=== PATIENT | male | born 1940 | race Caucasian/White ===

== ENCOUNTER 2018-02-23 16:59 | Observation (INO) | payer MEDICARE ==
[2018-02-23] MEDS ORDERED: SODIUM CHLORIDE 0.9% 500 ML IV ONE (17:24)
[2018-02-23] MEDS ORDERED: ONDANSETRON 4 MG/2 ML VIAL IVP STA ×2 (17:24→19:04)
--- NOTE | 2018-02-23 17:30 | ED ---
General Adult HPI - General Chief complaint: Chest Pain Stated complaint: chest pain Time Seen by Provider: 02/23/18 17:07 Source: patient, RN notes reviewed, old records reviewed Mode of arrival: wheelchair Limitations: no limitations - History of Present Illness Initial comments: 77-year-old male history of COPD, CAD status post coronary artery bypass graft presents for evaluation of chest pain, lightheadedness, and dyspnea. Patient's symptoms began approximately one hour prior to arrival. His had some associated nausea, no vomiting. Denies baseline dyspnea, he has not had an issue with his heart in the past 20 years. He was a previous smoker but is not currently smoking. Patient lives out of town, he is here visiting friends. Denies lower extremity pain or swelling. Denies preceding cough or fever. Pain is substernal. - Related Data Home Medications Medication Instructions Recorded Confirmed Albuterol Inhaler [Ventolin Hfa 2 puff INHALATION RT-Q4H PRN 02/23/18 02/23/18 Inhaler] Aspirin EC [Ecotrin Low Dose] 81 mg PO HS 02/23/18 02/23/18 Atorvastatin [Lipitor] 80 mg PO HS 02/23/18 02/23/18 Calcium Carbonate [Calcium] 1,200 mg PO AC-LUNCH 02/23/18 02/23/18 Carvedilol [Coreg] 3.125 mg PO BID 02/23/18 02/23/18 Cholecalciferol (Vitamin D3) 2,000 unit PO AC-LUNCH 02/23/18 02/23/18 [Vitamin D3] Ciclopirox [Penlac] 1 applic TOPICAL 02/23/18 02/23/18 Diltiazem HCl [Diltiazem ER] 180 mg PO DAILY 02/23/18 02/23/18 Docusate [Colace] 100 mg PO BID PRN 02/23/18 02/23/18 Econazole Nitrate 1 applic TOPICAL HS 02/23/18 02/23/18 Fish Oil/Dha/Epa [Fish Oil 1,200 1 cap PO AC-LUNCH 02/23/18 02/23/18 mg Fish Oil] Fluticasone/Salmeterol [Advair 1 puff INHALATION RT-BID 02/23/18 02/23/18 100-50 Diskus] Furosemide [Lasix] 20 mg PO DAILY 02/23/18 02/23/18 Ipratropium Nebulized [Atrovent 0.5 mg INHALATION RT-QID PRN 02/23/18 02/23/18 Nebulized] Lactobacillus Acidophilus 1 tab PO AC-LUNCH 02/23/18 02/23/18 [Acidophilus] Lisinopril [Zestril] 5 mg PO HS 02/23/18 02/23/18 Ondansetron [Zofran ODT] 4 mg PO Q8HR PRN 02/23/18 02/23/18 Pantoprazole Sodium [Protonix] 40 mg PO DAILY 02/23/18 02/23/18 Potassium Chloride ER [K-Dur 20] 20 meq PO DAILY 02/23/18 02/23/18 Venlafaxine HCl [Effexor] 75 mg PO HS 02/23/18 02/23/18 Zipsor(Unknown Dose) 1 tab PO Q12H PRN 02/23/18 02/23/18 Allergies Allergy/AdvReac Type Severity Reaction Status Date / Time Iodinated Contrast- Oral and Allergy Anaphylaxis Verified 02/23/18 17:36 IV Dye Review of Systems ROS Statement: Those systems with pertinent positive or pertinent negative responses have been documented in the HPI. ROS Other: All systems not noted in ROS Statement are negative. Past Medical History Past Medical History: Asthma, COPD, Hyperlipidemia, Hypertension History of Any Multi-Drug Resistant Organisms: None Reported Past Surgical History: Cholecystectomy, Coronary Bypass/CABG, Heart Catheterization With Stent Past Psychological History: No Psychological Hx Reported Smoking Status: Former smoker Past Alcohol Use History: Occasional Past Drug Use History: None Reported General Exam Limitations: no limitations General appearance: alert, in no apparent distress Head exam: Present: atraumatic, normocephalic Eye exam: Present: normal appearance, PERRL, EOMI ENT exam: Present: normal exam Neck exam: Present: normal inspection. Absent: tenderness, meningismus Respiratory exam: Present: normal lung sounds bilaterally. Absent: respiratory distress, wheezes, rales Cardiovascular Exam: Present: regular rate, normal rhythm GI/Abdominal exam: Present: soft, tenderness (Mild left lower quadrant tenderness palpation). Absent: distended Extremities exam: Present: normal inspection, normal capillary refill. Absent: pedal edema Back exam: Present: normal inspection. Absent: full ROM, tenderness Neurological exam: Present: alert, oriented X3, CN II-XII intact. Absent: motor sensory deficit Psychiatric exam: Present: normal affect, normal mood Skin exam: Present: warm, dry, intact. Absent: cyanosis, diaphoretic Course Vital Signs 02/23/18 02/23/18 02/23/18 17:04 18:21 19:08 Temperature 97.4 F L 97.6 F Pulse Rate 109 H 91 101 H Respiratory 18 16 19 Rate Blood Pressure 116/74 148/68 144/78 O2 Sat by Pulse 99 99 99 Oximetry EKG Findings - EKG Comments: EKG Findings:: EKG: Obtained at 1715, sinus tachycardia, first-degree AV block left axis deviation, right bundle branch block, rate of 101, WA interval 216, QRS duration 140, QTC 492. Repeat EKG obtained at 1818 with worsening pain, sinus rhythm with first-degree AV block, left axis deviation, right bundle branch block, rate of 94, WA interval 216, QRS duration 140, QTC 510 Medical Decision Making - Medical Decision Making 77-year-old male presenting for evaluation of chest pain. Patient does have history of CAD status post CABG. EKG is abnormal although there is no baseline for comparison. Additional workup in the ER: Chest x-ray negative for any acute cardiopulmonary disease, normal white blood cell count, hemoglobin is 11.3 , troponin is negative. CMP unremarkable. Lipase is 308 which is mildly elevated, patient is reevaluated he does have some mild epigastric tenderness to palpation. He is status post cholecystectomy. Given the patient's risk factors he will be kept in observation for serial cardiac enzymes. CT of the abdomen will be obtained given his epigastric abdominal pain and nausea on top of his chest pain. Case discussed with Dr. Beckford, he will accept admission, he will also follow up on computed tomography scan of the abdomen and pelvis. - Lab Data Result diagrams: 02/23/18 17:15 02/23/18 17:15 Lab Results 02/23/18 02/23/18 02/23/18 Range/Units 17:15 17:15 17:15 WBC 6.9 (3.8-10.6) k/uL RBC 3.26 L (4.30-5.90) m/uL Hgb 11.3 L (13.0-17.5) gm/dL Hct 33.8 L (39.0-53.0) % MCV 103.7 H (80.0-100.0) fL MCH 34.5 (25.0-35.0) pg MCHC 33.3 (31.0-37.0) g/dL RDW 14.8 (11.5-15.5) % Plt Count 226 (150-450) k/uL Neutrophils % 62 % Lymphocytes % 31 % Monocytes % 5 % Eosinophils % 0 % Basophils % 0 % Neutrophils # 4.3 (1.3-7.7) k/uL Lymphocytes # 2.1 (1.0-4.8) k/uL Monocytes # 0.3 (0-1.0) k/uL Eosinophils # 0.0 (0-0.7) k/uL Basophils # 0.0 (0-0.2) k/uL Macrocytosis Slight PT (9.0-12.0) sec INR (<1.2) APTT (22.0-30.0) sec Sodium 138 (137-145) mmol/L Potassium 4.2 (3.5-5.1) mmol/L Chloride 99 (98-107) mmol/L Carbon Dioxide 25 (22-30) mmol/L Anion Gap 14 mmol/L BUN 31 H (9-20) mg/dL Creatinine 1.08 (0.66-1.25) mg/dL Est GFR (CKD-EPI)AfAm 77 (>60 ml/min/1.73 sqM) Est GFR (CKD-EPI)NonAf 67 (>60 ml/min/1.73 sqM) Glucose 97 (74-99) mg/dL Calcium 8.4 (8.4-10.2) mg/dL Magnesium 1.9 (1.6-2.3) mg/dL Total Bilirubin 0.8 (0.2-1.3) mg/dL AST 33 (17-59) U/L ALT 35 (21-72) U/L Alkaline Phosphatase 78 (38-126) U/L Total Creatine Kinase 24 L (55-170) U/L CK-MB (CK-2) 0.3 (0.0-2.4) ng/mL CK-MB (CK-2) Rel Index 1.3 Troponin I <0.012 (0.000-0.034) ng/mL NT-Pro-B Natriuret Pep pg/mL Total Protein 6.8 (6.3-8.2) g/dL Albumin 3.8 (3.5-5.0) g/dL Lipase 308 H (23-300) U/L Urine Color Urine Appearance (Clear) Urine pH (5.0-8.0) Ur Specific [place] (1.001-1.035) Urine Protein (Negative) Urine Glucose (UA) (Negative) Urine Ketones (Negative) Urine Blood (Negative) Urine Nitrite (Negative) Urine Bilirubin (Negative) Urine Urobilinogen (<2.0) mg/dL Ur Leukocyte Esterase (Negative) 02/23/18 02/23/18 02/23/18 Range/Units 17:15 17:15 Unknown WBC (3.8-10.6) k/uL RBC (4.30-5.90) m/uL Hgb (13.0-17.5) gm/dL Hct (39.0-53.0) % MCV (80.0-100.0) fL MCH (25.0-35.0) pg MCHC (31.0-37.0) g/dL RDW (11.5-15.5) % Plt Count (150-450) k/uL Neutrophils % % Lymphocytes % % Monocytes % % Eosinophils % % Basophils % % Neutrophils # (1.3-7.7) k/uL Lymphocytes # (1.0-4.8) k/uL Monocytes # (0-1.0) k/uL Eosinophils # (0-0.7) k/uL Basophils # (0-0.2) k/uL Macrocytosis PT 10.6 (9.0-12.0) sec INR 1.1 (<1.2) APTT 21.6 L (22.0-30.0) sec Sodium (137-145) mmol/L Potassium (3.5-5.1) mmol/L Chloride (98-107) mmol/L Carbon Dioxide (22-30) mmol/L Anion Gap mmol/L BUN (9-20) mg/dL Creatinine (0.66-1.25) mg/dL Est GFR (CKD-EPI)AfAm (>60 ml/min/1.73 sqM) Est GFR (CKD-EPI)NonAf (>60 ml/min/1.73 sqM) Glucose (74-99) mg/dL Calcium (8.4-10.2) mg/dL Magnesium (1.6-2.3) mg/dL Total Bilirubin (0.2-1.3) mg/dL AST (17-59) U/L ALT (21-72) U/L Alkaline Phosphatase (38-126) U/L Total Creatine Kinase (55-170) U/L CK-MB (CK-2) (0.0-2.4) ng/mL CK-MB (CK-2) Rel Index Troponin I (0.000-0.034) ng/mL NT-Pro-B Natriuret Pep 182 pg/mL Total Protein (6.3-8.2) g/dL Albumin (3.5-5.0) g/dL Lipase (23-300) U/L Urine Color Light Yellow Urine Appearance Clear (Clear) Urine pH 7.0 (5.0-8.0) Ur Specific [place] 1.007 (1.001-1.035) Urine Protein Negative (Negative) Urine Glucose (UA) Negative (Negative) Urine Ketones Negative (Negative) Urine Blood Negative (Negative) Urine Nitrite Negative (Negative) Urine Bilirubin Negative (Negative) Urine Urobilinogen 2.0 (<2.0) mg/dL Ur Leukocyte Esterase Negative (Negative) Disposition Clinical Impression: Chest pain Disposition: ADMITTED IP TO THIS [facility] Condition: Stable Is patient prescribed a controlled substance at d/c from ED?: No Referrals: Nonstaff,Physician [Primary Care Provider] - 1-2 days Decision to Admit Reason: Admit from EC Decision Date: 02/23/18 Decision Time: 19:24
[2018-02-23 17:37] LABS: Basophils % (A) 0 %; Eosinophils % (A) 0 %; HCT 33.8 % (39.0-53.0); HGB 11.3 gm/dL (13.0-17.5); Lymphocytes # (A) 2.1 k/uL (1.0-4.8); Lymphocytes % (A) 31 %; MCH 34.5 pg (25.0-35.0); MCHC 33.3 g/dL (31.0-37.0); MCV 103.7 fL (80.0-100.0); Macrocytosis Slight; Mean Platelet Volume 7.9; Monocytes # (A) 0.3 k/uL (0-1.0); Monocytes % (A) 5 %; Neutrophils # (A) 4.3 k/uL (1.3-7.7); Neutrophils % (A) 62 %; Platelet Count 226 k/uL (150-450); RBC 3.26 m/uL (4.30-5.90); RDW 14.8 % (11.5-15.5); WBC 6.9 k/uL (3.8-10.6)
[2018-02-23 17:38] LABS: Appearance,Urine Clear (Clear); Bilirubin,Urine Negative (Negative); Blood,Urine Negative (Negative); Color,Urine Light Yellow; Glucose,Urine (UA) Negative (Negative); Ketones,Urine Negative (Negative); Leukocyte Esterase,Urine Negative (Negative); Nitrite,Urine Negative (Negative); Protein,Urine Negative (Negative); Specific Gravity,Urine 1.007 (1.001-1.035)
[2018-02-23 17:48] LABS: Albumin 3.8 g/dL (3.5-5.0); Calcium 8.4 mg/dL (8.4-10.2); Magnesium 1.9 mg/dL (1.6-2.3); Potassium 4.2 mmol/L (3.5-5.1); Total Bilirubin 0.8 mg/dL (0.2-1.3); Total Protein 6.8 g/dL (6.3-8.2)
[2018-02-23 17:58] LABS: INR 1.1 (<1.2); Prothrombin Time 10.6 sec (9.0-12.0)
[2018-02-23 17:59] LABS: Creatine Kinase 24 U/L (55-170)
[2018-02-23 18:04] LABS: Partial Thromboplastin Time 21.6 sec (22.0-30.0)
[2018-02-23 18:12] LABS: Creatine Kinase MB 0.3 ng/mL (0.0-2.4); Troponin I <0.012 ng/mL (0.000-0.034)
[2018-02-23] MEDS ORDERED: MORPHINE SULFATE 4 MG/ML SYRINGE IVP STA (18:33)
--- NOTE | 2018-02-23 18:56 | XR ---
EXAMINATION TYPE: XR chest 2V DATE OF EXAM: 02/23/2018 COMPARISON: None HISTORY: 77 year-old male shortness of breath and chest pain TECHNIQUE: AP and lateral views FINDINGS: The heart is normal size. Median sternotomy wires. Atherosclerotic arch calcifications. Mild intersti tial prominence has a chronic appearance. No consolidation or pleural effusion. IMPRESSION: No acute cardiopulmonary process.
[2018-02-23] MEDS ORDERED: ACETAMINOPHEN TAB 325 MG TAB PO PRN (19:14)
[2018-02-23] MEDS ORDERED: ONDANSETRON 4 MG/2 ML VIAL IVP PRN (19:14)
[2018-02-23] MEDS ORDERED: NALOXONE 0.4 MG/ML 1 ML VIAL IV PRN (19:14)
[2018-02-23] MEDS ORDERED: methylPREDNISolone SOD SUCCI 125 MG/2 ML VIAL IV STA (19:17)
[2018-02-23] MEDS ORDERED: FAMOTIDINE 20 MG/2 ML VIAL IV STA ×2 (19:17)
[2018-02-23] MEDS ORDERED: diphenhydrAMINE 50 MG/ML 1 ML VIAL IVP STA (19:17)
[2018-02-23] MEDS ORDERED: IPRATROPIUM 0.5 MG/2.5 ML NEBU INHALATION PRN (19:45)
[2018-02-23] MEDS ORDERED: ALBUTEROL NEBULIZED 2.5 MG/3 ML INHALATION PRN (19:45)
--- NOTE | 2018-02-23 19:45 | P.HPIM ---
History of Present Illness H&P Date: 02/23/18 Chief Complaint: chest pain 77-year-old male with significant past medical history for coronary artery disease status post CABG in 1997 and stents in 2004. Patient lives in [facility] and he is visiting here for his daughter' s wedding Patient presented due to sudden onset chest pain, he reports that he was watching TV when he felt that there is chest pressure building up up and so became severe 7 out of 10 in severity, pressure-like central nonradiating associated with lightheadedness dizziness dyspnea nausea but no vomiting he tried to rest for it to go away but it persisted for which she got concerned and decided to come to the hospital. Last time he had the chest pain was 3 years ago which resolved on its own with resting he did not seek medical advice at bedtime. Patient otherwise reports no chest pain but sometimes he gets some shortness of breath with moderate to severe activity. For which she rests and will resolve last time he was hospitalized was around 3 months ago for COPD exacerbation. Patient otherwise denies any headache changes in his vision or hearing he denies any focal neurologic deficits he denies any changes in his speech he denies any changes in his bowel habits or urinary habits he denies any GI bleeding. Patient does report some mild discomfort right lower quadrant of the belly after I examined him. Patient also reports decreased appetite and weight loss of 50 pounds over 3-4 months of summer, his PCP in [place] is aware and has been running up some tests. He prescribed the patient some Zofran to help with nausea and increase his appetite. EKG showed right bundle branch block and cardiac enzymes were negative CAT scan of the abdomen showed calcification of the infrarenal abdominal aorta with stenosis of the right renal artery. comparison to prior imaging was advised currently patient denies chest pain or dizziness. Review of Systems Pertinent positives as noted in HPI. All other systems were reviewed and are negative Past Medical History Past Medical History: Asthma, Coronary Artery Disease (CAD), COPD, Hyperlipidemia, Hypertension History of Any Multi-Drug Resistant Organisms: None Reported Past Surgical History: Cholecystectomy, Coronary Bypass/CABG, Heart Catheterization With Stent Past Psychological History: No Psychological Hx Reported Smoking Status: Former smoker Past Alcohol Use History: Occasional Past Drug Use History: None Reported - Past Family History family Additional Family Medical History / Comment(s): mother with CAD, of heart attack Medications and Allergies Home Medications Medication Instructions Recorded Confirmed Type Albuterol Inhaler [Ventolin Hfa 2 puff INHALATION RT-Q4H PRN 02/23/18 02/23/18 History Inhaler] Aspirin EC [Ecotrin Low Dose] 81 mg PO HS 02/23/18 02/23/18 History Atorvastatin [Lipitor] 80 mg PO HS 02/23/18 02/23/18 History Calcium Carbonate [Calcium] 1,200 mg PO AC-LUNCH 02/23/18 02/23/18 History Carvedilol [Coreg] 3.125 mg PO BID 02/23/18 02/23/18 History Cholecalciferol (Vitamin D3) 2,000 unit PO AC-LUNCH 02/23/18 02/23/18 History [Vitamin D3] Ciclopirox [Penlac] 1 applic TOPICAL HS 02/23/18 02/23/18 History Diltiazem HCl [Diltiazem ER] 180 mg PO DAILY 02/23/18 02/23/18 History Docusate [Colace] 100 mg PO BID PRN 02/23/18 02/23/18 History Econazole Nitrate 1 applic TOPICAL 02/23/18 02/23/18 History Fish Oil/Dha/Epa [Fish Oil 1,200 1 cap PO AC-LUNCH 02/23/18 02/23/18 History mg Fish Oil] Fluticasone/Salmeterol [Advair 1 puff INHALATION RT-BID 02/23/18 02/23/18 History 100-50 Diskus] Furosemide [Lasix] 20 mg PO DAILY 02/23/18 02/23/18 History Ipratropium Nebulized [Atrovent 0.5 mg INHALATION RT-QID PRN 02/23/18 02/23/18 History Nebulized] Lactobacillus Acidophilus 1 tab PO AC-LUNCH 02/23/18 02/23/18 History [Acidophilus] Lisinopril [Zestril] 5 mg PO HS 02/23/18 02/23/18 History Ondansetron [Zofran ODT] 4 mg PO Q8HR PRN 02/23/18 02/23/18 History Pantoprazole Sodium [Protonix] 40 mg PO DAILY 02/23/18 02/23/18 History Potassium Chloride ER [K-Dur 20] 20 meq PO DAILY 02/23/18 02/23/18 History Venlafaxine HCl [Effexor] 75 mg PO HS 02/23/18 02/23/18 History Zipsor(Unknown Dose) 1 tab PO Q12H PRN 02/23/18 02/23/18 History Allergies Allergy/AdvReac Type Severity Reaction Status Date / Time Iodinated Contrast- Oral and Allergy Anaphylaxis Verified 02/23/18 17:36 IV Dye Physical Exam Vitals: Vital Signs Temp Pulse Resp BP Pulse Ox 02/23/18 19:08 97.6 F 101 H 19 144/78 99 02/23/18 18:21 91 16 148/68 99 02/23/18 17:04 97.4 F L 109 H 18 116/74 99 Intake and Output 02/23/18 02/23/18 02/23/18 06:59 14:59 22:59 Other: Weight 72.575 kg Constitutional: No acute distress, conversant, pleasant Eyes: Anicteric sclerae, moist conjunctiva, no lid-lag Pupils equal round reactive to light ENMT: NC/AT Oropharynx clear, no erythema, or exudates Neck: Supple, FROM, no masses, or JVD No carotid bruits No thyromegaly Lungs: Clear to auscultation Clear to percussion Normal respiratory effort, no accessory muscle use Cardiovascular: Heart regular in rate and rhythm, No murmurs, gallops, or rubs No peripheral edema Abdominal: Soft, slight discomfort to palpation of the right lower quadrant no guarding, rebound or rigidity Abdomen moving with respiration Normoactive bowel sounds No hepatomegaly, No splenomegaly No palpable mass No abdominal wall hernia noted Skin: echymotic spots over bilateral forearms Normal temperature, tone, texture, turgor No induration No subcutaneous nodules No rash, lesions No ulcers Extremities: No digital cyanosis No clubbing Pedal pulses weak and symmetrical, capillary refil immediate over the toes Radial pulses intact and symmetrical No calf tenderness Psychiatric: Alert and oriented to person, place and time Appropriate affect fair judgment Neuro Muscles Strength 5/5 in all 4 extremities Sensation to light touch grossly present throughout Cranial nerves II-XII grossly intact No focal sensory deficits no Nystagmus Lymphatics: no palpable cervical or supraclavicular , or inguinal lymph nodes Results CBC & Chem 7: 02/23/18 17:15 02/23/18 17:15 Labs: Abnormal Lab Results - Last 24 Hours (Table) 02/23/18 02/23/18 02/23/18 Range/Units 17:15 17:15 17:15 RBC 3.26 L (4.30-5.90) m/uL Hgb 11.3 L (13.0-17.5) gm/dL Hct 33.8 L (39.0-53.0) % MCV 103.7 H (80.0-100.0) fL APTT (22.0-30.0) sec BUN 31 H (9-20) mg/dL Total Creatine Kinase 24 L (55-170) U/L Lipase 308 H (23-300) U/L 02/23/18 Range/Units 17:15 RBC (4.30-5.90) m/uL Hgb (13.0-17.5) gm/dL Hct (39.0-53.0) % MCV (80.0-100.0) fL APTT 21.6 L (22.0-30.0) sec BUN (9-20) mg/dL Total Creatine Kinase (55-170) U/L Lipase (23-300) U/L Assessment and Plan Assessment: 77-year-old male with significant history for coronary artery disease status post CABG 1997 and stent in 2004. Patient is admitted as observation with anticipated length of stay of less than 48 hours to rule out acute coronary syndrome due to patient presenting with chest pain suspected to have unstable angina. Initial cardiac enzymes were negative will continue to trend enzymes, cardiac monitoring, cardiology consult. Echocardiogram of the heart in the morning to a questionable history of heart failure and patient feeling generalized fatigue. 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, statin Nitro SL prn cardiology consult IVF hydration hold lasix Hypertension , currently controlled continue lisinopril , coreg COPD , stable continue inhalers unintentional weight loss poor apetite workup initiated in [place] GERD PPI abd aortic calcification , per abd CT compare to prior imaging , [place] Macrocytic anemia check B12, folic acid levels Surrogate decision-maker: patient daughter Tisha CODE STATUS:full code DVT prophylaxis:heparin sc tid Discussed with: Patient, ER, Rn Anticipated discharge: <[address]: home A total of 50 minutes was spent on the care of this complex patient more than 50 % of the time was spent in counseling and care coordination.
[2018-02-23] MEDS: SODIUM CHLORIDE 0.9% 1,000 ML IV SCH (20:07)
--- NOTE | 2018-02-23 21:10 | CT ---
EXAMINATION TYPE: CT abdomen pelvis w con DATE OF EXAM: 02/23/2018 COMPARISON: NONE HISTORY: 77-year-old male with abdominal pain TECHNIQUE: Contiguous axial scanning of the abdomen and pelvis following administration of 100 ml Iso debbie 300 IV contrast. Delayed images through the kidneys and coronal/sagittal reconstructions perform ed. CT DLP: 764.90 mGycm Automated exposure control for dose reduction was used. FINDINGS: Median sternotomy wires are present. Heart normal size without pericardial effusion. Mild dependent a telectasis without pleural effusion. No focal liver lesion. Patient status post cholecystectomy. Normal distal tapering of the bile duct. Diverticulum of the second portion of the duodenum projecting into the pancreatic head region. Portal venous system is patent. Adrenal glands and spleen appear within normal limits. Bilateral renal cysts measuring up to 3.3 cm on the left and 2.6 cm on the right. Nonspecific calcifications in the pancreatic tail measuring 9 mm. No discrete mass identified. No dilated small bowel, free fluid, or free air. Right renal artery stent. There may be severe narrowing at the origin of the left renal artery. There is an infrarenal abdominal iliac stent graft. Scattered densities within the la posta sacs, parti cularly along the left lateral margin of the distal abdominal aorta, refer to axial image 48, posteri or aspect distal abdominal aorta, and axial image 54 and 55, and within the posterior aspect of the a neurysmal right common iliac artery la posta sac on axial image 68. Proximal stented la posta sac measures 3.6 cm, distal stented la posta sac measures 4.0 cm, right common iliac artery la posta sac measures 3.9 cm, and left common iliac artery la posta sac measures 2.4 cm. No dilated small bowel, free fluid, or free air. No mesenteric or retroperitoneal lymphadenopathy. Minimal scattered stool. There is left hemicolonic diverticulosis extending from the mid descending c olon to the proximal sigmoid. No pericolonic inflammatory change seen. Bladder is urine distended. Prostate gland is enlarged measuring 6.3 cm wide. Pelvic phleboliths. No abnormal fluid collection in the pelvis or pelvic lymphadenopathy. Bones: Artifact from the patient's left hip total arthroplasty limiting assessment. Degenerated dextroconvex scoliosis of the lumbar spine. Patchy sclerosis is seen within the sacrum wh ich are reticular thickening, possible Paget's disease. Degenerative changes right hip. Grade 1 retro listheses at L3-L4 and L4-L5. IMPRESSION: 1. INFRARENAL AORTOBIILIAC ENDOVASCULAR STENT GRAFT. THIS EXAM IS NOT TAILORED FOR ASSESSMENT OF ENDO LEAK. THE AORTIC [place] MEASURES UP TO 4.0 CM, [place] OF THE RIGHT COMMON ILIAC ARTERY MEASUR ES UP TO 3.9 CM, AND THE LEFT COMMON ILIAC ARTERY [place] MEASURES UP TO 2.4 CM. THIS CAN BE IVONNE RED TO ANY AVAILABLE OUTSIDE PRIORS TO ENSURE STABILITY. 2. AREAS OF HYPERDENSITY WITHIN THE [place] ARE SUSPECTED TO REPRESENT CALCIFICATIONS RATHER THAN AN ENDOLEAK. AGAIN, OVERALL [place] CALIBER CAN BE COMPARED TO PATIENT'S OUTSIDE PRIORS. 3. POSSIBLE SEVERE STENOSIS AT THE ORIGIN OF THE LEFT RENAL ARTERY. 4. PROSTATOMEGALY (6.3 CM). 5. DEGENERATIVE DEXTROCONVEX SCOLIOSIS.
[2018-02-23] MEDS: SYMBICORT 80-4.5 MCG INHALER INHALATION SCH (21:15)
[2018-02-23] MEDS ORDERED: NITROGLYCERIN SL TABS 0.4 MG TAB SUBLINGUAL PRN (21:32)
[2018-02-23 22:07] VITALS: BMI 21.7
[2018-02-23] MEDS: MORPHINE SULFATE 4 MG/ML SYRINGE IV PRN (22:10)
[2018-02-23] MEDS: LISINOPRIL 5 MG TAB PO SCH (22:10)
[2018-02-23] MEDS: ASPIRIN 81 MG PO SCH (22:10)
[2018-02-23] MEDS: ATORVASTATIN 80 MG TAB PO SCH (22:10)
[2018-02-23] MEDS: VENLAFAXINE HCL 75 MG TAB PO SCH (22:10)
[2018-02-23] MEDS: CARVEDILOL 3.125 MG TAB PO SCH (22:10)
[2018-02-23] MEDS: CLOTRIMAZOLE 1% CREAM 15 GM TUBE TOPICAL SCH (22:17)
[2018-02-23] MEDS: NON-FORMULARY DRUG (Ciclopirox [Penlac] 1 APPLIC) TOPICAL SCH (22:17)
[2018-02-23 23:56] LABS: Creatine Kinase 26 U/L (55-170)
[2018-02-24 00:08] LABS: Creatine Kinase MB 0.4 ng/mL (0.0-2.4); Troponin I <0.012 ng/mL (0.000-0.034)
[2018-02-24] MEDS: HEPARIN SODIUM,PORCINE 5,000 UNIT/ML 1 ML VIAL SQ SCH ×4 (00:32→23:20)
[2018-02-24] MEDS: MORPHINE SULFATE 4 MG/ML SYRINGE IV PRN ×4 (02:41→19:39)
[2018-02-24 06:20] LABS: Basophils % (A) 0 %; Eosinophils % (A) 0 %; HCT 32.9 % (39.0-53.0); HGB 10.6 gm/dL (13.0-17.5); Lymphocytes # (A) 0.6 k/uL (1.0-4.8); Lymphocytes % (A) 18 %; MCH 34.2 pg (25.0-35.0); MCHC 32.1 g/dL (31.0-37.0); MCV 106.5 fL (80.0-100.0); Macrocytosis Moderate; Mean Platelet Volume 6.6; Monocytes # (A) 0.1 k/uL (0-1.0); Monocytes % (A) 2 %; Neutrophils # (A) 2.6 k/uL (1.3-7.7); Neutrophils % (A) 79 %; Platelet Count 154 k/uL (150-450); RBC 3.09 m/uL (4.30-5.90); RDW 15.2 % (11.5-15.5); WBC 3.4 k/uL (3.8-10.6)
[2018-02-24 06:30] LABS: ALT 36 U/L (21-72); AST 30 U/L (17-59); Albumin 3.4 g/dL (3.5-5.0); Alkaline Phosphatase 78 U/L (38-126); Anion Gap 8 mmol/L; Blood Urea Nitrogen 30 mg/dL (9-20); Calcium 8.3 mg/dL (8.4-10.2); Carbon Dioxide 27 mmol/L (22-30); Chloride 101 mmol/L (98-107); Glucose 120 mg/dL (74-99); Potassium 4.3 mmol/L (3.5-5.1); Sodium 136 mmol/L (137-145); Total Bilirubin 1.5 mg/dL (0.2-1.3); Total Protein 6.3 g/dL (6.3-8.2)
[2018-02-24 06:37] LABS: Creatine Kinase 22 U/L (55-170)
[2018-02-24 06:50] LABS: Creatine Kinase MB 0.4 ng/mL (0.0-2.4); Troponin I <0.012 ng/mL (0.000-0.034)
[2018-02-24] MEDS: SYMBICORT 80-4.5 MCG INHALER INHALATION SCH ×2 (07:13→20:32)
[2018-02-24] MEDS ORDERED: PANTOPRAZOLE 40 MG/10 ML VIAL IV SCH (09:00)
[2018-02-24] MEDS: DILTIAZEM CD 180 MG CAP.ER.24H PO SCH (09:14)
[2018-02-24] MEDS: CHOLECALCIFEROL 1,000 UNIT TAB PO SCH (09:14)
[2018-02-24] MEDS: PANTOPRAZOLE 40 MG TABLET PO SCH (09:14)
[2018-02-24] MEDS: CARVEDILOL 3.125 MG TAB PO SCH ×2 (09:14→19:37)
[2018-02-24] MEDS: SODIUM CHLORIDE 0.9% 1,000 ML IV SCH ×2 (09:14→20:17)
--- NOTE | 2018-02-24 12:29 | P.PN ---
Subjective Progress Note Date: 02/24/18 Principal diagnosis: Chest pain Patient was seen and examined. No acute events overnight. Patient reports midline chest pain, started 4 PM yesterday while he was laying. Patient reports chest pain is intermittent, dull and pressure-like in quality. Pain is aggravated with deep inspiration and with movement.patient reports CABG at [facility] in [place]. Patient reports an endovascular stent placement in October 2017 at [facility] in [place]. Of note, patient reports poor appetite for the past 3 months. Patient reports losing about 50 pounds since 2014. Patient report poor appetite and abdominal fullness after consuming small amount of food associated with nausea. He reports undergoing EGD and colonoscopy in [place] which was negative. Objective - Vital Signs Vital signs: Vital Signs Temp 98.2 F 02/24/18 08:00 Pulse 95 02/24/18 08:00 Resp 16 02/24/18 08:00 BP 144/83 02/24/18 08:00 Pulse Ox 99 02/24/18 08:00 Intake & Output 02/23/18 02/24/18 02/24/18 18:59 06:59 18:59 Weight 72.575 kg 72.5 kg Other: Voiding Method Urinal Urinal # Voids 3 - Exam General: [non toxic], [no distress], [appears at stated age] Derm: [warm], [dry] Head: [atraumatic], [normocephalic], [symmetric] Eyes: [EOMI], [no lid lag], [anicteric sclera] Mouth: [no lip lesion], [mucus membranes moist] Cardiovascular: [S1S2 reg], [no murmur], [positive DP pulse bilateral] Lungs: [CTA bilateral], [no rhonchi, no rales] , [no accessory muscle use] Abdominal: [soft], [Mild RLQ tenderness with no rebound], [no guarding], [no appreciable organomegaly] Ext: [no gross muscle atrophy], [no edema], [no contractures] Neuro: [ CN II-XI grossly intact], [no focal neuro deficits] Psych: [Alert], [oriented], [appropriate affect] - Labs CBC & Chem 7: 02/24/18 05:27 02/24/18 05:27 Labs: Abnormal Lab Results - Last 24 Hours (Table) 02/23/18 02/23/18 02/23/18 Range/Units 17:15 17:15 17:15 WBC (3.8-10.6) k/uL RBC 3.26 L (4.30-5.90) m/uL Hgb 11.3 L (13.0-17.5) gm/dL Hct 33.8 L (39.0-53.0) % MCV 103.7 H (80.0-100.0) fL Lymphocytes # (1.0-4.8) k/uL APTT (22.0-30.0) sec Sodium (137-145) mmol/L BUN 31 H (9-20) mg/dL Glucose (74-99) mg/dL Calcium (8.4-10.2) mg/dL Total Bilirubin (0.2-1.3) mg/dL Total Creatine Kinase 24 L (55-170) U/L Albumin (3.5-5.0) g/dL Lipase 308 H (23-300) U/L 02/23/18 02/23/18 02/24/18 Range/Units 17:15 23:02 05:27 WBC (3.8-10.6) k/uL RBC (4.30-5.90) m/uL Hgb (13.0-17.5) gm/dL Hct (39.0-53.0) % MCV (80.0-100.0) fL Lymphocytes # (1.0-4.8) k/uL APTT 21.6 L (22.0-30.0) sec Sodium (137-145) mmol/L BUN (9-20) mg/dL Glucose (74-99) mg/dL Calcium (8.4-10.2) mg/dL Total Bilirubin (0.2-1.3) mg/dL Total Creatine Kinase 26 L 22 L (55-170) U/L Albumin (3.5-5.0) g/dL Lipase (23-300) U/L 02/24/18 02/24/18 Range/Units 05:27 05:27 WBC 3.4 L (3.8-10.6) k/uL RBC 3.09 L (4.30-5.90) m/uL Hgb 10.6 L (13.0-17.5) gm/dL Hct 32.9 L (39.0-53.0) % MCV 106.5 H (80.0-100.0) fL Lymphocytes # 0.6 L (1.0-4.8) k/uL APTT (22.0-30.0) sec Sodium 136 L (137-145) mmol/L BUN 30 H (9-20) mg/dL Glucose 120 H (74-99) mg/dL Calcium 8.3 L (8.4-10.2) mg/dL Total Bilirubin 1.5 H (0.2-1.3) mg/dL Total Creatine Kinase (55-170) U/L Albumin 3.4 L (3.5-5.0) g/dL Lipase (23-300) U/L Assessment and Plan Assessment: Assessment and Plan 1. Chest pain: High risk - CABG in 1997 and stent placement in 2004. Trop < 0.012 x 3, EKG showing S. tachycardia with 1st AV block, L axis deviation and RBBB. CXR negative. Pain management with Tylenol, Nitrostat and Morphine PRN. Telemetry monitoring. ACS ruled out but Cardiology consulted for possible Lexiscan on Sunday. Low concern for PE but had long distance flight. FU Echo, Cardiology consult, D-Dimer 2. Elevated Lipase: Lipase 308 with h/o cholecystectomy. CT AP shows nonspecific calcifications of the pancreatic tail with normal bile ducts. Pain management as above. Continue NS 75 ml/h. Protonix 40 mg PO QD. Zofran 4 mg IV TID PRN. Advance diet as tolerated. 3. Aortic aneurysms: 3.6cm proximal and 4.0cm distal dilation from the stented aorta, 3.9cm R common illiac, 2.4cm L common illiac seen on CT AP with infrarenal stent + R renal artery stent and severe L renal stenosis. Continue Coreg 3.125 mg PO BID. Hyperdensity seen likely calcification rather than leak. Vitals and Telemetry monitoring. FU Vascular Sx 4. Prerenal azotemia: BUN 30 Cr 0.95. Likely due to dehydration. Continue NS 75 ml/h. Daily BMP 5. Macrocytic anemia: Hg 10.6 Hct 32.9 MCV 106.5. FU B12/Folate 6. Weight loss: Reported by patient since 2014. Worked up in the outPT setting in [place]. Underwent EGD and C-scope per patient which was unremarkable. TSH 1.190. FU Dietitian consult 7. CAD: Continue ASA 81 mg PO QD, Lipitor 80 mg PO QHS. Continue Coreg 3.12 mg PO BID. FU Lipid panel, A1c 8. HTN: BP 144/83. Continue Coreg 3.125 mg PO BID, Cardizem 180 mg PO QD, Lisinopril 5 mg PO QHS. Monitor vitals, adjust medications as necessary. 9. COPD: DuoNeb neb PRN. Continue Symbicort 2 puff BID. 10. DVT/GI Prophylaxis: Protonix 40 mg PO QAM, Heparin 5000 units SQ TID. Discussed with Dr. Quinones, patient will need stress, scheduled for Sunday.
--- NOTE | 2018-02-24 18:28 | CONS ---
CONSULTATION Mr. Guidry is a 77-year-old gentleman who is seen for cardiac evaluations. Patient's medical records reviewed. This patient has been visiting from [place], [place] for his daughter's wedding. He was watching TV and he felt the chest discomfort. He describes it as a dull aching, heavy feeling in the across the chest which was persistent. Pain was associated with slight dizziness, but denied any significant shortness of breath. No nausea or vomiting. Patient also had a mild epigastric pain. This patient has a known history of coronary artery disease. He had a prior coronary artery bypass surgery done in 1997 and had a stent done in 2004. The patient also has a history of peripheral vascular disease and had abdominal iliac stent. The patient gives a history that his physical activities are significantly limited. Most of the time he is stays in the house and he can walk only short distances with the help. The patient denies any history of orthopnea or PND. The patient has not been experiencing any significant chest pains in the past. The patient also reports that his appetite decrease and has lost about 50 pounds of weight in last 3-4 months. The patient had a CT scan of the abdomen which showed some calcification in the infrarenal abdominal aorta with stenosis of the left renal artery. At present, patient is comfortable, is not having any significant chest pain. PAST MEDICAL HISTORY: Includes history of coronary artery bypass surgery, cardiac catheterization, cholecystectomy, and patient is a former smoker. HOME MEDICATIONS: Patient's home medications included: Ecotrin, Lipitor, calcium, vitamin D3, Cardizem once a day, Lasix 20 mg daily, Atrovent inhaler, Zestril 5 mg daily, Zocor, Zofran, Protonix, Effexor. PHYSICAL EXAMINATION: In the emergency room, patient's vital signs were stable. Physical examination at present reveals a 77-year-old gentleman who does not appear to be in any acute distress. Patient's blood pressure is 144/83 mmHg, oxygen saturation is 99%. HEENT examination is negative. Neck is supple. There is no increase in jugular venous pressure. Both the carotid pulses are felt. There is no bruit. Chest is symmetrical. Heart: The PMI is not felt. First and second heart sounds are normal. No significant murmurs are noted. Lungs are clinically clear to auscultation and percussion. Abdomen is soft. Liver and spleen are not enlarged. Bowel sounds are heard. Extremities: Peripheral pulsations are not felt. Patient has a surgical scar in both groins. The right femoral pulse is 2+, left femoral pulse is not felt. EKG shows normal sinus rhythm with left bundle branch block pattern. The patient's hemoglobin is 10.6 with macrocytosis. Electrolytes are normal. Creatinine is 0.95. Three sets of troponins are normal. FINAL IMPRESSION: 1. This patient had a persistent chest discomfort. EKG does not show any acute ischemic changes and cardiac enzymes are normal. This is suggestive of atypical angina. However, significant progression in the coronary artery disease cannot be entirely excluded at present. 2. Patient has a history of coronary artery bypass surgery and prior stent placement. 3. Peripheral vascular disease with abdominal aortoiliac stent graft in the past. RECOMMENDATIONS: Continue current medications. Echo and Doppler study will be done. We will evaluate the patient with Lexiscan Cardiolite study to rule out any evidence of significant cardiac ischemia. MMODL / IJN: [id number] /
[2018-02-24] MEDS: ASPIRIN 81 MG PO SCH (19:37)
[2018-02-24] MEDS: ATORVASTATIN 80 MG TAB PO SCH (19:37)
[2018-02-24] MEDS: VENLAFAXINE HCL 75 MG TAB PO SCH (19:37)
[2018-02-24] MEDS: LISINOPRIL 5 MG TAB PO SCH (19:37)
[2018-02-24] MEDS: NON-FORMULARY DRUG (Ciclopirox [Penlac] 1 APPLIC) TOPICAL SCH (19:38)
[2018-02-24] MEDS: CLOTRIMAZOLE 1% CREAM 15 GM TUBE TOPICAL SCH (19:38)
[2018-02-24] MEDS: DOCUSATE 100 MG CAP PO PRN (20:17)
[2018-02-25] MEDS: MORPHINE SULFATE 4 MG/ML SYRINGE IV PRN ×4 (01:02→20:40)
[2018-02-25] MEDS: DOCUSATE 100 MG CAP PO PRN (06:45)
[2018-02-25 07:49] LABS: Anion Gap 5 mmol/L; Blood Urea Nitrogen 26 mg/dL (9-20); Calcium 8.1 mg/dL (8.4-10.2); Carbon Dioxide 28 mmol/L (22-30); Chloride 104 mmol/L (98-107); Cholesterol 139 mg/dL (<200); Glucose 97 mg/dL (74-99); HDL Cholesterol 48 mg/dL (40-60); LDL Cholesterol,Calculated 48 mg/dL (0-99); Potassium 3.8 mmol/L (3.5-5.1); Sodium 137 mmol/L (137-145); Triglycerides 217 mg/dL (<150)
[2018-02-25] MEDS: SYMBICORT 80-4.5 MCG INHALER INHALATION SCH ×2 (08:05→21:07)
[2018-02-25] MEDS: HEPARIN SODIUM,PORCINE 5,000 UNIT/ML 1 ML VIAL SQ SCH (08:24)
[2018-02-25] MEDS: CARVEDILOL 3.125 MG TAB PO SCH ×2 (08:24→19:50)
[2018-02-25] MEDS: PANTOPRAZOLE 40 MG TABLET PO SCH (08:24)
[2018-02-25] MEDS ORDERED: ENOXAPARIN 80 MG/0.8 ML SYRINGE SQ STA (08:32)
--- NOTE | 2018-02-25 08:35 | CONS ---
CONSULTATION This is a 77-year-old gentleman who has been admitted to [facility] with history of chest discomfort and pain. The patient has been admitted for further evaluation. I was consulted. Patient has an infrarenal abdominal aortic aneurysm. The patient had aortic stent graft placed in [place] a few months ago for infrarenal abdominal aortic aneurysm. No history of back pain. No history of claudication or rest pain. MEDICAL HISTORY: Includes history of coronary artery bypass surgery in the past. Cardiac catheterization and the patient had a cholecystectomy and infrarenal aortic stent graft placed. PHYSICAL EXAMINATION: Patient was seen in his room, lying comfortably in bed. NECK: Supple. No bruit appreciated. Chest: 1st and second sounds normal. Abdomen is soft, nontender. Vascular examination brachial radial femoral pulses are present. The patient had abdomen and pelvis CT which showed patient has a infrarenal aortic stent graft. No endo leak noted. The aortic qagan [place] sac measured about 4 cm. Right common iliac artery sac is 3.9 cm and left common iliac artery qagan tay[place]ung[place] sac is 2.4 cm with some calcification. No evidence of endoleak. There was an incidental finding of stenosis of the origin of the left renal artery. PLAN: Patient is stable from his aortic stent graft. Patient told me that he is going next month back to [place] for his appointment. At this point, patient is stable from aortic stent graft placement. There is no evidence of endoleak. Thank you for the consultation. ALEX / HELENA: [id number] /
[2018-02-25] MEDS: DILTIAZEM CD 180 MG CAP.ER.24H PO SCH (09:20)
[2018-02-25] MEDS: SODIUM CHLORIDE 0.9% 1,000 ML IV SCH (09:26)
[2018-02-25] MEDS ORDERED: diphenhydrAMINE 50 MG/ML 1 ML VIAL IVP STA (11:11)
[2018-02-25] MEDS ORDERED: methylPREDNISolone SOD SUCCI 125 MG/2 ML VIAL IV STA (11:11)
[2018-02-25] MEDS ORDERED: FAMOTIDINE 20 MG/2 ML VIAL IV ONE (11:12)
--- NOTE | 2018-02-25 12:23 | PN ---
PROGRESS NOTE This patient was admitted with history of chest pain. EKGs and cardiac enzymes were normal. CT scan of the abdomen was done. There was no evidence of any endoleak. The patient's blood pressure is 112/73 mmHg. First and second heart sounds are normal. Lungs are clinically clear to auscultation and percussion. The patient's troponins are negative. The patient's D-dimer was 5.09. The patient is ALLERGIC to DYE. Patient will be given blood pressure and could be considered for CT scan of the chest to rule out pulmonary emboli. A pulmonary emboli is ruled out, patient will be scheduled for the stress test tomorrow. MMODL / IJN: [id number] /
--- NOTE | 2018-02-25 13:12 | CT ---
EXAMINATION TYPE: CT angio chest DATE OF EXAM: 02/25/2018 12:57 PM COMPARISON: None HISTORY: Chest pain CT DLP: 435 mGycm Automated exposure control for dose reduction was used. CONTRAST: CTA scan of the thorax is performed without and with IV Contrast, patient injected with 100 ml mL of Isovue 370, pulmonary embolism protocol. There are 3-D post processed images.. FINDINGS: There is aneurysm of the ascending aorta that measures 4.5 cm. There is no dissection. Heart size is normal. There are no filling defects in the pulmonary arteries. There are no hilar masses. There is n o mediastinal adenopathy. Lungs are clear of consolidation. There is no evidence of a pulmonary mass. There is some coarse reti cular density at the lung bases. IMPRESSION: NO EVIDENCE OF PULMONARY EMBOLISM. FIBROTIC CHANGES AT THE LUNG BASES. ANEURYSM OF THE ASCENDING AORT A.
--- NOTE | 2018-02-25 13:14 | P.PN ---
Subjective Progress Note Date: 02/25/18 Principal diagnosis: Chest pain Patient was seen and examined. No acute events overnight. Patient continues to report chest pain, constant at this time, 2 out of 10 in severity. He states his pain is worsened after cough. He denies shortness of breath. He has no other complaints today. Objective - Vital Signs Vital signs: Vital Signs Temp 97.4 F L 02/25/18 11:30 Pulse 85 02/25/18 11:30 Resp 18 02/25/18 11:30 BP 112/73 02/25/18 11:30 Pulse Ox 96 02/25/18 11:30 Intake & Output 02/24/18 02/25/18 02/25/18 18:59 06:59 18:59 Intake Total 240 Output Total 300 Balance -60 Weight 72.5 kg Intake: Oral 240 Output: Urine 300 Other: Voiding Method Urinal Urinal Urinal # Voids 1 - Exam General: [non toxic], [no distress], [appears at stated age] Derm: [warm], [dry] Head: [atraumatic], [normocephalic], [symmetric] Eyes: [EOMI], [no lid lag], [anicteric sclera] Mouth: [no lip lesion], [mucus membranes moist] Cardiovascular: [S1S2 reg], [no murmur], [positive DP pulse bilateral] Lungs: [CTA bilateral], [no rhonchi, no rales] , [no accessory muscle use] Abdominal: [soft], [nontender to palpation], [no guarding], [no appreciable organomegaly] Ext: [no gross muscle atrophy], [no edema], [no contractures] Neuro: [ CN II-XI grossly intact], [no focal neuro deficits] Psych: [Alert], [oriented], [appropriate affect] - Labs CBC & Chem 7: 02/24/18 05:27 02/25/18 07:13 Labs: Abnormal Lab Results - Last 24 Hours (Table) 02/25/18 02/25/18 Range/Units 07:13 07:13 D-Dimer 5.09 H (<0.60) mg/L FEU BUN 26 H (9-20) mg/dL Calcium 8.1 L (8.4-10.2) mg/dL Triglycerides 217 H (<150) mg/dL Assessment and Plan Assessment: Assessment and Plan 1. Chest pain: High risk - CABG in 1997 and stent placement in 2004. Trop < 0.012 x 3, EKG showing S. tachycardia with 1st AV block, L axis deviation and RBBB. CXR negative. Pain management with Tylenol, Nitrostat and Morphine PRN. Telemetry monitoring. ACS ruled out but Cardiology recommending Lexiscan on Sunday. D-Dimer 5.09, will need CTA Chest to r/o PE as per Cardiology ( Solumedrol and Benadryl for allergy). FU Echo, Cardiology consult 2. Elevated Lipase: Lipase 308 with h/o cholecystectomy. CT AP shows nonspecific calcifications of the pancreatic tail with normal bile ducts. On high intensity statin for mild hyperTG. Pain management as above. Continue NS 75 ml/h. Protonix 40 mg PO QD. Zofran 4 mg IV TID PRN. Advance diet as tolerated. 3. Prerenal azotemia: BUN 26 Cr 0.90, improving. Likely due to dehydration. Continue NS 75 ml/h. Daily BMP 4. Aortic aneurysms: 3.6cm proximal and 4.0cm distal dilation from the stented aorta, 3.9cm R common illiac, 2.4cm L common illiac seen on CT AP with infrarenal stent + R renal artery stent and severe L renal stenosis. Continue Coreg 3.125 mg PO BID. Hyperdensity seen likely calcification rather than leak. Vitals and Telemetry monitoring. Vascular Sx consulted and recommendations appreciated, FU ouPT. 5. Macrocytic anemia: Hg 10.6 Hct 32.9 MCV 106.5. FU B12/Folate 6. Weight loss: Reported by patient since 2015. Worked up in the outPT setting in [place]. Underwent EGD and C-scope per patient which was unremarkable. TSH 1.190. Dietitian recommends Enlive to diet. 7. CAD: Continue ASA 81 mg PO QD, Lipitor 80 mg PO QHS. Continue Coreg 3.12 mg PO BID. Lipid panel shows normal T. Chol and LDL with TG 217. FU A1c 8. HTN: BP 112/73. Continue Coreg 3.125 mg PO BID, Cardizem 180 mg PO QD, Lisinopril 5 mg PO QHS. Monitor vitals, adjust medications as necessary. 9. COPD: DuoNeb neb PRN. Continue Symbicort 2 puff BID. 10. DVT/GI Prophylaxis: Protonix 40 mg PO QAM, Heparin 5000 units SQ TID. Discussed with Dr. Quinones, patient will need stress, scheduled for Sunday. He has an elevated d-dimer, we will rule out PE with CT angiogram of the chest.
[2018-02-25] MEDS: CHOLECALCIFEROL 1,000 UNIT TAB PO SCH (16:52)
[2018-02-25] MEDS: NON-FORMULARY DRUG (Ciclopirox [Penlac] 1 APPLIC) TOPICAL SCH (19:42)
[2018-02-25] MEDS: LISINOPRIL 5 MG TAB PO SCH (19:50)
[2018-02-25] MEDS: ASPIRIN 81 MG PO SCH (19:50)
[2018-02-25] MEDS: CLOTRIMAZOLE 1% CREAM 15 GM TUBE TOPICAL SCH (19:50)
[2018-02-25] MEDS: VENLAFAXINE HCL 75 MG TAB PO SCH (19:50)
[2018-02-25] MEDS: ATORVASTATIN 80 MG TAB PO SCH (19:50)
[2018-02-26] MEDS: MORPHINE SULFATE 4 MG/ML SYRINGE IV PRN ×2 (00:24→04:41)
[2018-02-26] MEDS: SODIUM CHLORIDE 0.9% 1,000 ML IV SCH (00:30)
[2018-02-26 07:01] LABS: Anion Gap 3 mmol/L; Blood Urea Nitrogen 30 mg/dL (9-20); Calcium 8.5 mg/dL (8.4-10.2); Carbon Dioxide 28 mmol/L (22-30); Chloride 108 mmol/L (98-107); Glucose 111 mg/dL (74-99); Potassium 4.2 mmol/L (3.5-5.1); Sodium 139 mmol/L (137-145)
[2018-02-26 07:50] VITALS: PULSE 76; RESP 18; TEMP 98.2
[2018-02-26] MEDS ORDERED: REGADENOSON 0.4 MG/5 ML SYRINGE IV ONE (08:00)
[2018-02-26] MEDS ORDERED: AMINOPHYLLINE 500 MG/20 ML VIAL IV PRN (08:00)
[2018-02-26] MEDS: SYMBICORT 80-4.5 MCG INHALER INHALATION SCH (08:10)
[2018-02-26 10:21] LABS: Hemoglobin A1C 5.4 % (4.0-6.0)
[2018-02-26] MEDS: PANTOPRAZOLE 40 MG TABLET PO SCH (10:31)
[2018-02-26] MEDS: CHOLECALCIFEROL 1,000 UNIT TAB PO SCH (10:31)
[2018-02-26] MEDS: CARVEDILOL 3.125 MG TAB PO SCH (10:31)
[2018-02-26] MEDS: DOCUSATE 100 MG CAP PO PRN (10:31)
[2018-02-26] MEDS: DILTIAZEM CD 180 MG CAP.ER.24H PO SCH (10:33)
--- NOTE | 2018-02-26 11:00 | EST ---
EXERCISE STRESS DATE OF SERVICE: 02/26/2018 AGE: 77 SEX: Male HT: 6' WT: 160 pounds PROTOCOL: Lexiscan Cardiolite STAGE: DURATION OF EXERCISE: HEART RATE REST: 72 BLOOD PRESSURE REST: 160/89 MAXIMUM HEART RATE ACHIEVED: 87 MAXIMUM BLOOD PRESSURE: 160/87 85% MPHR: 100% MPHR: METS: INDICATIONS: Chest pain. CLINICAL INFORMATION: A Lexiscan nuclear study was performed. Peak heart rate of 87 was achieved. Maximum blood pressure of 160/87 mmHg was noted. Resting EKG shows normal sinus rhythm with a QRS morphology suggestive of right bundle branch block pattern noted. No ST-segment depression suggestive of ischemia is noted. The results of the nuclear study will follow. MMODL / IJN: [id number] /
[2018-02-26 11:39] VITALS: BP 156/76
--- NOTE | 2018-02-26 11:51 | NM ---
EXAMINATION TYPE: NM stress lexiscan cardiolite DATE OF EXAM: 02/26/2018 COMPARISON: NONE HISTORY: Chest pain TECHNIQUE: After the intravenous administration of 10.74 mCi Tc 99m Sestamibi - Cardiolite resting S PECT images acquired 45 minutes post injection. The patient received 0.4mg Lexiscan, 26.9 mCi Tc 99m Sestamibi - Stress images obtained [address] injection FINDINGS: Review of stress and rest SPECT images demonstrates no distinct perfusion abnormality. Gated analysi s shows normal wall motion with an estimated left ventricular ejection fraction of 60 %. IMPRESSION: No scintigraphic evidence for reversible ischemia. Consider echocardiography for elevated ejection fr action
[2018-02-26] MEDS ORDERED: HYDROcodone/APAP 5-325MG 1 EACH TAB PO PRN (12:04)
--- NOTE | 2018-02-26 13:38 | P.DS ---
Providers Date of admission: 02/23/18 19:24 Attending physician: Shelby Ott MD Consults: 02/23/18 21:32 Consult Physician Routine Consulting Provider: Ranjit Morales Consult Reason/Comments: chest pain , r/o ACS Do you want consulting provider notified?: Yes 02/24/18 12:23 Consult Physician Routine Consulting Provider: Apolinar Garrison Consult Reason/Comments: Aneurysmal dilation Do you want consulting provider notified?: Yes Primary care physician: Physician Nonstaff Hospital Course: Discharge Diagnosis: 1. Noncardiac chest pain 2. Peripheral arterial disease-severe, follow up as outpatient 3. Weight loss-continue outpatient follow-up 4. Macrocytic anemia 5. Slightly 6. Coronary artery disease 7. Hypertension 8. COPD without exacerbation Hospital Course: Patient is a 77-year-old male with a past medical history of coronary artery disease status post coronary bypass grafting, COPD, hypertension, and dyslipidemia who is here visiting from [place] and developed chest pain. In the ER he underwent an extensive evaluation. His initial troponins were within normal limits. Initial EKG did not show any acute ischemia. He was given an aspirin and admitted to the obs unit for further monitoring. He was seen by cardiology who recommended stress test. He subsequently underwent a Lexiscan stress test on 02/26 which did not show any reversible ischemia. While here he was also noted to have a slightly elevated lipase however there was no signs of pancreatitis on his CT abdomen and pelvis. His d-dimer was slightly elevated and a CTA of the chest did not show any evidence of pulmonary emboli. He was determined stable for discharge home. He will need to continue to follow-up with his orthopedic surgeon has been having difficulty with left hip dislocation of his prior prosthetic hip. He will also need to follow-up with his primary care physician for further workup of his weight loss. He has had an EGD completed and he has a colonoscopy scheduled. I've also suggested prostate cancer screening. He was found to have an enlarged prostate on CT abdomen and pelvis. His CT abdomen and pelvis also demonstrated diffuse peripheral arterial disease with prior stent/graft placement. He plans on returning to [place] prior to March 27. He was cleared by cardiology. He does not need refills of any of his prescriptions. Patient seen and examined at bedside. Additional chest pain, shortness breath, nausea, or vomiting. Having some issues with his left hip prosthesis. He has appointment with surgeon when he returns to [place]. Vital signs reviewed and stable. General: non toxic, no distress, appears at stated age Derm: warm, dry Head: atraumatic, normocephalic, symmetric Eyes: EOMI, no lid lag, anicteric sclera Mouth: no lip lesion, mucus membranes moist Cardiovascular: S1S2 reg, no murmur, positive posterior tibial pulse bilateral, Lungs: CTA bilateral, no rhonchi, no rales , no accessory muscle use Abdominal: soft, nontender to palpation, no guarding, no appreciable organomegaly Ext: no gross muscle atrophy, no edema, no contractures Neuro: CN II-XI grossly intact, no focal neuro deficits Psych: Alert, oriented, appropriate affect A total of 20 minutes of time were spent preparing this complex discharge summary . Pertinent Studies: CT abdomen and pelvis-infrarenal aortobiiliac endovascular stent graft. Areas of hyperdensity within the tolowa dee-ni' sac suspected to represent calcifications. Possible severe stenosis of the origin of the left renal artery. Prostatomegaly. Degenerative scoliosis. CTA chest: No evidence of pulmonary emboli. Fibrotic changes. Aneurysm of the ascending aorta 4.5 cm. Procedures: Lexiscan stress test: No evidence of reversible ischemia. Patient Condition at Discharge: Stable Plan - Discharge Summary New Discharge Prescriptions: Continue Zipsor(Unknown Dose) 1 tab PO Q12H PRN PRN Reason: Pain Ondansetron [Zofran ODT] 4 mg PO Q8HR PRN PRN Reason: Nausea Ipratropium Nebulized [Atrovent Nebulized] 0.5 mg INHALATION RT-QID PRN PRN Reason: Shortness Of Breath Lisinopril [Zestril] 5 mg PO HS Aspirin EC [Ecotrin Low Dose] 81 mg PO HS Venlafaxine HCl [Effexor] 75 mg PO HS Ciclopirox [Penlac] 1 applic TOPICAL HS Atorvastatin [Lipitor] 80 mg PO HS Econazole Nitrate 1 applic TOPICAL HS Lactobacillus Acidophilus [Acidophilus] 1 tab PO AC-LUNCH Fish Oil/Dha/Epa [Fish Oil 1,200 mg Fish Oil] 1 cap PO AC-LUNCH Cholecalciferol (Vitamin D3) [Vitamin D3] 2,000 unit PO AC-LUNCH Potassium Chloride ER [K-Dur 20] 20 meq PO DAILY Furosemide [Lasix] 20 mg PO DAILY Calcium Carbonate [Calcium] 1,200 mg PO AC-LUNCH Docusate [Colace] 100 mg PO BID PRN PRN Reason: Constipation Diltiazem HCl [Diltiazem 24Hr ER] 180 mg PO DAILY Carvedilol [Coreg] 3.125 mg PO BID Pantoprazole Sodium [Protonix] 40 mg PO DAILY Fluticasone/Salmeterol [Advair 100-50 Diskus] 1 puff INHALATION RT-BID Albuterol Inhaler [Ventolin Hfa Inhaler] 2 puff INHALATION RT-Q4H PRN PRN Reason: Shortness Of Breath Discharge Medication List Albuterol Inhaler [Ventolin Hfa Inhaler] 2 puff INHALATION RT-Q4H PRN 02/23/18 [ History] Aspirin EC [Ecotrin Low Dose] 81 mg PO HS 02/23/18 [History] Atorvastatin [Lipitor] 80 mg PO HS 02/23/18 [History] Calcium Carbonate [Calcium] 1,200 mg PO AC-LUNCH 02/23/18 [History] Carvedilol [Coreg] 3.125 mg PO BID 02/23/18 [History] Cholecalciferol (Vitamin D3) [Vitamin D3] 2,000 unit PO AC-LUNCH 02/23/18 [ History] Ciclopirox [Penlac] 1 applic TOPICAL HS 02/23/18 [History] Diltiazem HCl [Diltiazem 24Hr ER] 180 mg PO DAILY 02/23/18 [History] Docusate [Colace] 100 mg PO BID PRN 02/23/18 [History] Econazole Nitrate 1 applic TOPICAL HS 02/23/18 [History] Fish Oil/Dha/Epa [Fish Oil 1,200 mg Fish Oil] 1 cap PO AC-LUNCH 02/23/18 [ History] Fluticasone/Salmeterol [Advair 100-50 Diskus] 1 puff INHALATION RT-BID 02/23/18 [History] Furosemide [Lasix] 20 mg PO DAILY 02/23/18 [History] Ipratropium Nebulized [Atrovent Nebulized] 0.5 mg INHALATION RT-QID PRN [History] Lactobacillus Acidophilus [Acidophilus] 1 tab PO AC-LUNCH 02/23/18 [History] Lisinopril [Zestril] 5 mg PO HS 02/23/18 [History] Ondansetron [Zofran ODT] 4 mg PO Q8HR PRN 02/23/18 [History] Pantoprazole Sodium [Protonix] 40 mg PO DAILY 02/23/18 [History] Potassium Chloride ER [K-Dur 20] 20 meq PO DAILY 02/23/18 [History] Venlafaxine HCl [Effexor] 75 mg PO HS 02/23/18 [History] Zipsor(Unknown Dose) 1 tab PO Q12H PRN 02/23/18 [History] Follow up Appointment(s)/Referral(s): Nonstaff,Physician [Primary Care Provider] - 1-2 days
--- NOTE | 2018-02-27 09:45 | ECHOF ---
Referral Reason:history of CAD , ?CHF history MEASUREMENTS -------- HEIGHT: 182.9 cm WEIGHT: 72.1 kg BP: 144/83 IVSd: 1.1 cm (0.6 - 1.1) LVIDd: 4.3 cm (3.9 - 5.3) LVPWd: 1.1 cm (0.6 - 1.1) EDV(Teich): 84 ml IVSs: 1.6 cm LVIDs: 4.2 cm LVPWs: 1.5 cm %IVS Thck: 44 % ESV(Teich): 77 ml EF(Teich): 9 % %FS: 4 % SV(Teich): 7 ml LA Diam: 3.8 cm (2.7 - 3.8) RVIDd: 3.3 cm (< 3.3) LALs A4C: 5.3 cm LAAs A4C: 17.6 cm LAESV A-L A4C: 49 ml LAESV MOD A4C: 45 ml LALs A2C: 5.6 cm LAAs A2C: 19.9 cm LAESV A-L A2C: 60 ml LAESV MOD A2C: 58 ml LAESV(A-L): 56 ml LAESV Index (A-L): 29.00 ml/m HR_2Ch_Q: 76 bpm HR_4Ch_Q: 79 bpm LVVED_2Ch_Q: 72 ml LVVED_4Ch_Q: 142 ml LVVED_BiP_Q: 102 ml LVVES_2Ch_Q: 24 ml LVVES_4Ch_Q: 72 ml LVVES_BiP_Q: 41 ml LVEF_2Ch_Q: 66 % LVEF_4Ch_Q: 49 % LVEF_BiP_Q: 60 % LVSV_2Ch_Q: 48 ml LVSV_4Ch_Q: 70 ml LVSV_BiP_Q: 61 ml LVCO_2Ch_Q: 3.7 l/min LVCO_4Ch_Q: 5.6 l/min LVCO_BiP_Q: 4.7 l/min LVLs_2Ch_Q: 7.4 cm LVLs_4Ch_Q: 7.7 cm LVLd_2Ch_Q: 8.8 cm LVLd_4Ch_Q: 9.1 cm Ao Diam: 4.0 cm (2.0 - 3.7) AV Cusp: 2.3 cm (1.5 - 2.6) EPSS: 1.0 cm MV E Julien: 0.60 m/s MV DecT: 306 ms MV Dec [place]: 2.0 m/s MV A Julien: 0.94 m/s MV E/A Ratio: 0.64 MV PHT: 89 ms AV Vmax: 1.13 m/s AV maxP.09 mmHg TR Vmax: 2.09 m/s TR maxP.48 mmHg RAP: 5.00 mmHg RVSP: 22.48 mmHg MV EF SLOPE: 204.28 mm/s (70 - 150) MV EXCURSION: 17.90 mm (> 18.000) FINDINGS -------- Sinus rhythm. This was a technically good study. The left ventricular size is normal. There is borderline concentric left ventricular hypertrophy. Overall left ventricular systolic function is normal with, an EF between 55 - 60 %. Basal inferior LV wall motion is hypokinetic. Mid inferior LV wall motion is hypokinetic. The right ventricle is mildly enlarged. LA is midly dilated 29-33ml/m2. The right atrium is normal in size. There is mild aortic valve sclerosis. The mitral valve leaflets are mildly thickened. Mild mitral annular calcification present. There is trace to mild mitral regurgitation. Mild tricuspid regurgitation present. Right ventricular systolic pressure is normal at < 35 mmHg. Trace/mild (physiologic) pulmonic regurgitation. The aortic root is dilated measuring 4.0cm. IVC Not well visulized. There is no pericardial effusion. CONCLUSIONS -------- 1. Sinus rhythm. 2. This was a technically good study. 3. The left ventricular size is normal. 4. There is borderline concentric left ventricular hypertrophy. 5. Overall left ventricular systolic function is normal with, an EF between 55 - 60 %. 6. Basal inferior LV wall motion is hypokinetic. 7. Mid inferior LV wall motion is hypokinetic. 8. The right ventricle is mildly enlarged. 9. LA is midly dilated 29-33ml/m2. 10. The right atrium is normal in size. 11. There is mild aortic valve sclerosis. 12. The mitral valve leaflets are mildly thickened. 13. Mild mitral annular calcification present. 14. There is trace to mild mitral regurgitation. 15. Mild tricuspid regurgitation present. 16. Right ventricular systolic pressure is normal at < 35 mmHg. 17. Trace/mild (physiologic) pulmonic regurgitation. 18. The aortic root is dilated measuring 4.0cm. 19. IVC Not well visulized. 20. There is no pericardial effusion. QUALITY COMPLIANCE COORDINATOR: Sonia Pena RDCS
== END 2018-02-26 15:00 | disposition home or self-care (01) ==
LOC: EDBD → EC 16:59 → 3OBS 19:24
PROVIDERS: ADMIT Internal Medicine; ATTEND Internal Medicine
DX: R07.89 Other chest pain (principal); I73.9 Peripheral vascular disease, unspecified; I71.2 Thoracic aortic aneurysm, without rupture; I71.4 Abdominal aortic aneurysm, without rupture; I70.1 Atherosclerosis of renal artery; D53.9 Nutritional anemia, unspecified; I70.0 Atherosclerosis of aorta; I25.10 Atherosclerotic heart disease of native coronary artery without angina pectoris; I10 Essential (primary) hypertension; J44.9 Chronic obstructive pulmonary disease, unspecified; E78.5 Hyperlipidemia, unspecified; K21.9 Gastro-esophageal reflux disease without esophagitis; I45.10 Unspecified right bundle-branch block; N40.0 Benign prostatic hyperplasia without lower urinary tract symptoms; R63.4 Abnormal weight loss; K86.89 Other specified diseases of pancreas; R79.89 Other specified abnormal findings of blood chemistry; R10.13 Epigastric pain; R11.0 Nausea; Z79.82 Long term (current) use of aspirin; Z79.51 Long term (current) use of inhaled steroids; Z79.899 Other long term (current) drug therapy; Z91.041 Radiographic dye allergy status; Z96.642 Presence of left artificial hip joint; Z95.1 Presence of aortocoronary bypass graft; Z95.5 Presence of coronary angioplasty implant and graft; Z90.49 Acquired absence of other specified parts of digestive tract; Z95.820 Peripheral vascular angioplasty status with implants and grafts; Z87.891 Personal history of nicotine dependence
CPT/HCPCS: 99285 ×2; 96374 ×2; 96375 ×5; 96376 ×7; 96361 ×4; 96372 ×2; 36415; 94640 ×6; 93005; 93017; 93306; 85379; 82747; 83880; 80061; 80053 ×2; 80048 ×2; 84443; 82607; 82550 ×2; 82553 ×2; 83690; 83735; 84484 ×2; 85025 ×2; 85610; 85730; 81003; 83036; 71046; 71275; 74177; 78452; G0378 ×4; A9500; J2270 ×4; J1200 ×2; J1644 ×2; J2930 ×2; J2405; J1650; J2785; Q9967 ×2